=== PATIENT | female | born 1960 | race Caucasian/White ===

== ENCOUNTER 2018-02-21 14:38 | Emergency (ER) | payer MEDICAID ==
[~2018-02-21] VITALS: Ht 180.3 cm; Wt 120.0 kg
[2018-02-21 14:41] VITALS: BP 136/102
== END 2018-02-21 15:36 | disposition left against medical advice (07) ==
LOC: ER 14:38
DX: Z53.21 Procedure and treatment not carried out due to patient leaving prior to being seen by health care provider (principal)

== ENCOUNTER 2018-10-08 00:19 | Emergency (ER) | payer MEDICAID ==
[~2018-10-08] VITALS: Ht 157.5 cm; Wt 56.0 kg
[2018-10-08 00:33] VITALS: BP 126/73
== END 2018-10-08 01:18 | disposition left against medical advice (07) ==
LOC: ER 00:19
DX: R20.2 Paresthesia of skin (principal); Z53.21 Procedure and treatment not carried out due to patient leaving prior to being seen by health care provider

== ENCOUNTER 2019-03-14 09:13 | Inpatient (IN) | payer MEDICAID ==
[~2019-03-14] VITALS: Ht 180.3 cm; Wt 129.8 kg
[2019-03-14] MEDS ORDERED: ALBUTEROL (0.083%) 2.5MG/3ML NEB HHN STA (09:30)
[2019-03-14] MEDS ORDERED: METHYLPREDNISOLONE SOD SUCC 125 MG/2 ML VIAL IV STA (09:30)
[2019-03-14] MEDS ORDERED: MAGNESIUM 2 G PREMIX 50 ML IV STA (09:30)
[2019-03-14] MEDS ORDERED: IPRATROPIUM BROMIDE (0.02%) 0.5MG/2.5ML NEB HHN STA (09:30)
[2019-03-14] MEDS ORDERED: SODIUM CHLORIDE 0.9% 1,000 ML IV ONE (09:31)
[2019-03-14] MEDS ORDERED: LEVOFLOXACIN 500MG PREMIX 100 ML IV ONE (09:45)
[2019-03-14 10:00] LABS: BASOPHILS % 0.8 % (0.0-2.0); EOSINOPHILS % 4.5 % (0.0-5.0); HEMATOCRIT. 41.6 % (36.0-48.0); HEMOGLOBIN. 14.4 g/dL (12.0-16.0); LYMPHOCYTES % 24.6 % (20.0-50.0); MEAN CORPUSCULAR VOLUME 95.6 fL (81.0-99.0); MEAN PLATELET VOLUME 7.8 fl (7.4-10.4); MONOCYTES % 7.2 % (2.0-8.0); NEUTROPHILS % 62.9 % (40.0-76.0); PLATELET 237 x1000/uL (130-400); RED BLOOD CELL COUNT 4.36 mill/uL (4.2-5.4); RED CELL DISTRIBUTION WIDTH 12.6 % (11.6-14.6)
[2019-03-14 10:08] LABS: PROTHROMBIN TIME 10.3 sec (9.6-11.0)
[2019-03-14 10:09] LABS: CHLORIDE 107 mEq/L (98-107)
[2019-03-14 11:21] LABS: CLARITY URINE TURBID (CLEAR); COLOR URINE DARK YELLOW (YELLOW); KETONES URINE NEGATIVE (NEGATIVE); LEUKOCYTE ESTERASE URINE TRACE (NEGATIVE); NITRITE URINE POSITIVE (NEGATIVE); OCCULT BLOOD URINE NEGATIVE (NEGATIVE); PH URINE 5.5 (4.5-8.0); PROTEIN URINE NEGATIVE (NEGATIVE)
[2019-03-14 12:00] VITALS: BP 130/81
[2019-03-14 13:00] VITALS: BP 130/81
[2019-03-14] MEDS ORDERED: ALBU18HF2 IH (14:23)
[2019-03-14] MEDS ORDERED: DIPHENHYDRAMINE 50MG/ML VIAL IV PRN (15:45)
[2019-03-14] MEDS ORDERED: ACETAMINOPHEN 325MG TABLET PO PRN (15:45)
[2019-03-14] MEDS ORDERED: MAGNESIUM/ALUMINUM HYDROXIDE/SIMETHICONE 30ML UDC PO PRN (15:45)
[2019-03-14] MEDS ORDERED: ONDANSETRON HCL 4MG/2ML INJ IV PRN (15:45)
[2019-03-14] MEDS ORDERED: GUAIFENESIN 200MG/10ML SUGAR FREE UDC PO PRN (15:45)
[2019-03-14] MEDS ORDERED: IPRATROPIUM/ALBUTEROL 0.5-3(2.5)MG/3ML NEB HHN PRN (15:45)
[2019-03-14] MEDS ORDERED: IPRATROPIUM/ALBUTEROL 0.5-3(2.5)MG/3ML NEB HHN SCH (16:00)
[2019-03-14] MEDS ORDERED: METHYLPREDNISOLONE SOD SUCC 40 MG/ML VIAL IV SCH (16:00)
[2019-03-14] MEDS ORDERED: BUDESONIDE 0.5MG/2ML NEB HHN SCH (16:00)
[2019-03-14] MEDS ORDERED: FAMOTIDINE 20MG TABLET PO SCH (21:00)
[2019-03-14] MEDS ORDERED: SODIUM CHLORIDE 0.9% INJ 3ML FLUSH IVF SCH (22:00)
== END 2019-03-14 20:18 | disposition left against medical advice (07) | DRG 140 ==
LOC: ER 09:29 → 5EST 10:10 → EDBEDREQTM 10:34 → EDBEDREQ 10:34 → ENRESERV 10:39
PROVIDERS: ADMIT Internal Medicine; ATTEND Internal Medicine
PROC: 5A09357 Assistance with Respiratory Ventilation, Less than 24 Consecutive Hours, Continuous Positive Airway Pressure (ICD-10-PCS; principal; 2019-03-14)
DX: J44.1 Chronic obstructive pulmonary disease with (acute) exacerbation (principal); E66.01 Morbid (severe) obesity due to excess calories; Q87.40 Marfan syndrome, unspecified; F17.200 Nicotine dependence, unspecified, uncomplicated; Z53.21 Procedure and treatment not carried out due to patient leaving prior to being seen by health care provider; F41.9 Anxiety disorder, unspecified; I10 Essential (primary) hypertension; K76.9 Liver disease, unspecified; Z68.39 Body mass index [BMI] 39.0-39.9, adult
CPT/HCPCS: 36415; 71045; 81003; 83605; 83880; 84145; 84484; 93005; 94640; 94660; 96374; 99291; J1956; J2930; J3475; J7030; J7611

== ENCOUNTER 2019-04-13 00:30 | Inpatient (IN) | payer MEDICAID ==
[~2019-04-13] VITALS: Ht 180.3 cm; Wt 124.7 kg
[2019-04-13] VITALS (8 sets, daily range): BP systolic 85–119; BP diastolic 35–78
[~2019-04-13 00:30] MED LIST: ALBU18HF2 IH
[2019-04-13 01:24] LABS: HEMATOCRIT. 49.6 % (36.0-48.0); HEMOGLOBIN. 17.1 g/dL (12.0-16.0); LYMPHOCYTES % 32.9 % (20.0-50.0); MEAN CORPUSCULAR HEMOGLOBIN 32.6 pg (28.0-32.0); MEAN CORPUSCULAR VOLUME 94.6 fL (81.0-99.0); NEUTROPHILS % 55.1 % (40.0-76.0); RED BLOOD CELL COUNT 5.25 mill/uL (4.2-5.4)
[2019-04-13 01:32] LABS: BASOPHILS % 0.7 % (0.0-2.0); EOSINOPHILS % 1.8 % (0.0-5.0); MEAN PLATELET VOLUME 8.8 fl (7.4-10.4); MONOCYTES % 9.5 % (2.0-8.0); PLATELET 396 x1000/uL (130-400); RED CELL DISTRIBUTION WIDTH 12.7 % (11.6-14.6)
[2019-04-13] MEDS ORDERED: MORPHINE SULFATE 4 MG/ML CPJ (NOT FOR IM USE) IV STA (01:41)
[2019-04-13] MEDS ORDERED: ONDANSETRON HCL 4MG/2ML INJ IV STA (01:41)
[2019-04-13 01:44] LABS: CHLORIDE 95 mEq/L (98-107)
[2019-04-13] MEDS ORDERED: SODIUM CHLORIDE 0.9% 1,000 ML IV ONE ×2 (03:51→05:52)
[2019-04-13 04:21] LABS: PROTHROMBIN TIME 10.1 sec (9.6-11.0)
[2019-04-13 05:04] LABS: BASOPHILS % 0.6 % (0.0-2.0); HEMATOCRIT. 41.8 % (36.0-48.0); HEMOGLOBIN. 14.4 g/dL (12.0-16.0); LYMPHOCYTES % 26.8 % (20.0-50.0); MEAN CORPUSCULAR HEMOGLOBIN 32.4 pg (28.0-32.0); MEAN CORPUSCULAR VOLUME 94.1 fL (81.0-99.0); MEAN PLATELET VOLUME 8.2 fl (7.4-10.4); NEUTROPHILS % 57.6 % (40.0-76.0); PLATELET 296 x1000/uL (130-400); RED BLOOD CELL COUNT 4.44 mill/uL (4.2-5.4); RED CELL DISTRIBUTION WIDTH 12.2 % (11.6-14.6)
[2019-04-13] MEDS ORDERED: ASPI-1393 PO (09:25)
[2019-04-13] MEDS ORDERED: ESCI10TA PO (09:25)
[2019-04-13] MEDS ORDERED: CLONIDINE 0.1MG TABLET PO PRN (10:00)
[2019-04-13] MEDS ORDERED: ACETAMINOPHEN 325MG TABLET PO PRN (10:00)
[2019-04-13] MEDS ORDERED: GUAIFENESIN 200MG/10ML SUGAR FREE UDC PO PRN (10:00)
[2019-04-13] MEDS ORDERED: ONDANSETRON HCL 4MG/2ML INJ IV PRN (10:00)
[2019-04-13] MEDS ORDERED: DOCUSATE SODIUM 100MG CAPSULE PO PRN (10:00)
[2019-04-13] MEDS ORDERED: IPRATROPIUM/ALBUTEROL 0.5-3(2.5)MG/3ML NEB HHN PRN (10:00)
[2019-04-13] MEDS ORDERED: DIPHENHYDRAMINE 50MG/ML VIAL IV PRN (10:00)
[2019-04-13] MEDS ORDERED: MAGNESIUM/ALUMINUM HYDROXIDE/SIMETHICONE 30ML UDC PO PRN (10:00)
[2019-04-13] MEDS: SODIUM CHLORIDE 0.9% 1,000 ML IV SCH ×2 (10:22→21:54)
[2019-04-13 12:07] LABS: CREATINE KINASE MB FRACTION 1.4 ng/mL (0.5-3.6)
[2019-04-13 14:20] LABS: TOTAL IRON BINDING CAPACITY 389 ug/dL (250-450)
[2019-04-13 14:26] LABS: FOLIC ACID (FOLATE) SERUM 18.7 ng/mL (>5.38)
[2019-04-13 14:46] LABS: HEPATITIS B SURFACE ANTIGEN NEGATIVE
[2019-04-13 15:16] LABS: HEPATITIS A AB IGM NEGATIVE (NEGATIVE)
[2019-04-13] MEDS: SODIUM CHLORIDE 0.9% 250 ML IV NR ×3 (16:17→18:15)
[2019-04-13] MEDS: PANTOPRAZOLE SODIUM 40 MG/VIAL IV SCH (16:25)
[2019-04-13 20:11] LABS: CLARITY URINE CLEAR (CLEAR); COLOR URINE YELLOW (YELLOW); KETONES URINE NEGATIVE (NEGATIVE); LEUKOCYTE ESTERASE URINE NEGATIVE (NEGATIVE); NITRITE URINE NEGATIVE (NEGATIVE); OCCULT BLOOD URINE NEGATIVE (NEGATIVE); PROTEIN URINE TRACE (NEGATIVE); SPECIFIC GRAVITY URINE 1.021 (1.005-1.030); UROBILINOGEN URINE 0.2 E.U./dL (0.2-1.0)
[2019-04-14] VITALS (11 sets, daily range): BP systolic 102–135; BP diastolic 54–85
[2019-04-14] MEDS: SODIUM CHLORIDE 0.9% 1,000 ML IV SCH ×2 (06:45→16:52)
[2019-04-14 06:48] LABS: BASOPHILS % 0.6 % (0.0-2.0); EOSINOPHILS % 3.7 % (0.0-5.0); HEMATOCRIT. 38.2 % (36.0-48.0); HEMOGLOBIN. 13.1 g/dL (12.0-16.0); MEAN CORPUSCULAR HEMOGLOBIN 32.5 pg (28.0-32.0); MEAN CORPUSCULAR VOLUME 94.5 fL (81.0-99.0); MEAN PLATELET VOLUME 8.4 fl (7.4-10.4); MONOCYTES % 12.8 % (2.0-8.0); NEUTROPHILS % 55.9 % (40.0-76.0); PLATELET 208 x1000/uL (130-400); RED BLOOD CELL COUNT 4.05 mill/uL (4.2-5.4); RED CELL DISTRIBUTION WIDTH 12.2 % (11.6-14.6)
[2019-04-14 07:58] LABS: CHLORIDE 108 mEq/L (98-107)
[2019-04-14 08:06] LABS: HDL CHOLESTEROL 30 mg/dL (40-59); LDL CHOLESTEROL 72 mg/dL (5-100)
[2019-04-14 08:07] LABS: CREATINE KINASE 61 IU/L (26-192)
[2019-04-14 08:13] LABS: CREATINE KINASE MB FRACTION < 1.0 ng/mL (0.5-3.6)
[2019-04-14] MEDS: PANTOPRAZOLE SODIUM 40 MG/VIAL IV SCH (09:22)
[2019-04-14] MEDS ORDERED: DEXTROSE 50% WATER 50ML SYRINGE IV PRN (21:30)
[2019-04-15] VITALS: BP 138/79
[2019-04-15] MEDS: SODIUM CHLORIDE 0.9% 1,000 ML IV SCH (02:44)
[2019-04-15 04:00] VITALS: BP 121/85
[2019-04-15] MEDS ORDERED: BLOOD SUGAR DIAGNOSTIC STRIP TEST SCH (06:50)
[2019-04-15] MEDS ORDERED: INSULIN LISPRO 100 UNITS/ML SUBCUT SCH (07:20)
[2019-04-15] MEDS: PANTOPRAZOLE SODIUM 40 MG/VIAL IV SCH (07:56)
[2019-04-15 08:14] VITALS: BP 132/66
[2019-04-15 10:13] VITALS: BP 135/96
[2019-04-15 10:55] VITALS: BP 121/85
== END 2019-04-15 11:20 | disposition home or self-care (01) | DRG 469 ==
LOC: ER 00:51 → 3WST 03:56 → EDBEDREQ 03:58 → EDBEDREQTM 03:58 → EDBEDREQSVC 03:58 → ENRESERV 07:37
PROVIDERS: ADMIT Internal Medicine; ATTEND Internal Medicine
DX: N17.9 Acute kidney failure, unspecified (principal); I95.9 Hypotension, unspecified; E11.65 Type 2 diabetes mellitus with hyperglycemia; E87.1 Hypo-osmolality and hyponatremia; E83.39 Other disorders of phosphorus metabolism; I11.9 Hypertensive heart disease without heart failure; K76.0 Fatty (change of) liver, not elsewhere classified; A08.4 Viral intestinal infection, unspecified; J44.1 Chronic obstructive pulmonary disease with (acute) exacerbation; E66.09 Other obesity due to excess calories; D63.8 Anemia in other chronic diseases classified elsewhere; B19.20 Unspecified viral hepatitis C without hepatic coma; H54.61 Unqualified visual loss, right eye, normal vision left eye; E86.0 Dehydration; F12.90 Cannabis use, unspecified, uncomplicated; J98.11 Atelectasis; Z87.891 Personal history of nicotine dependence; F10.239 Alcohol dependence with withdrawal, unspecified; Z68.38 Body mass index [BMI] 38.0-38.9, adult; Z79.84 Long term (current) use of oral hypoglycemic drugs
CPT/HCPCS: 36415; 71045; 74176; 76700; 80061; 81003; 82550; 82553; 82607; 82746; 82962; 83036; 83540; 83550; 83735; 83880; 84100; 84443; 84450; 84460; 84484; 86705; 86709; 86803; 86850; 86900; 87340; 93005; 93970; 96361; 96374; 96375; 99291; C9113; J1200; J2270; J2405; J7030

== ENCOUNTER 2019-06-26 13:04 | Emergency (ER) | payer MEDICAID, OTHER ==
[~2019-06-26] VITALS: Ht 167.6 cm; Wt 120.0 kg
[~2019-06-26 13:04] MED LIST changes: +ASPI-1497 PO; +ESCI10TA PO
[2019-06-26 14:22] LABS: BASOPHILS % 0.7 % (0.0-2.0); HEMATOCRIT. 38.9 % (36.0-48.0); HEMOGLOBIN. 13.2 g/dL (12.0-16.0); MEAN CORPUSCULAR HEMOGLOBIN 30.5 pg (28.0-32.0); MEAN CORPUSCULAR VOLUME 89.9 fL (81.0-99.0); MEAN PLATELET VOLUME 8.3 fl (7.4-10.4); MONOCYTES % 7.1 % (2.0-8.0); NEUTROPHILS % 58.2 % (40.0-76.0); PLATELET 104 x1000/uL (130-400); RED BLOOD CELL COUNT 4.33 mill/uL (4.2-5.4); RED CELL DISTRIBUTION WIDTH 12.9 % (11.6-14.6)
[2019-06-26 14:28] LABS: CHLORIDE 109 mEq/L (98-107)
[2019-06-26 15:10] LABS: CLARITY URINE CLEAR (CLEAR); COLOR URINE YELLOW (YELLOW); KETONES URINE NEGATIVE (NEGATIVE); LEUKOCYTE ESTERASE URINE NEGATIVE (NEGATIVE); NITRITE URINE POSITIVE (NEGATIVE); OCCULT BLOOD URINE 1+ (NEGATIVE); PROTEIN URINE 1+ (NEGATIVE); SPECIFIC GRAVITY URINE 1.016 (1.005-1.030); UROBILINOGEN URINE 0.2 E.U./dL (0.2-1.0)
[2019-06-26] MEDS ORDERED: CEFTRIAXONE 1 G PREMIX 50 ML IV ONE (15:45)
[2019-06-26] MEDS ORDERED: FUROSEMIDE 40MG/4ML VIAL IVP ONE (15:45)
[2019-06-26 17:05] VITALS: BP 149/91
== END 2019-06-26 17:06 | disposition home or self-care (01) ==
LOC: ER 13:04
DX: N30.00 Acute cystitis without hematuria (principal); I11.0 Hypertensive heart disease with heart failure; I50.9 Heart failure, unspecified; J45.909 Unspecified asthma, uncomplicated; Z79.82 Long term (current) use of aspirin
CPT/HCPCS: 36415; 71045; 80053; 81003; 83880; 84484; 85025; 93005; 96365; 96375; 99284; J0696; J1940

== ENCOUNTER 2023-03-24 17:29 | Emergency (ER) | payer MEDICAID, OTHER ==
[~2023-03-24] VITALS: Ht 175.3 cm; Wt 124.0 kg
[2023-03-24 17:52] VITALS: TEMP 97.8; O2SAT 100
[2023-03-24] MEDS ORDERED: BACITRACIN ZINC OINT UDPKT TOP ONE (19:30)
[2023-03-24] MEDS ORDERED: KETOROLAC 30MG/ML VIAL IM ONE (19:30)
[2023-03-24] MEDS ORDERED: TETANUS, DIPHTHERIA, PERTUSSIS VAC/PF 0.5ML (>10YR OLD) IM ONE ×2 (20:00→21:30)
[2023-03-24] MEDS ORDERED: LIDOCAINE HCL/PF 1% 10 MG/ML 5ML VIAL INFIL ONE ×2 (20:15→20:30)
[2023-03-24 21:15] VITALS: BP 120/68; PULSE 90; RESP 16
[2023-03-24] MEDS ORDERED: KETOROLAC 60MG/2ML VIAL IM NR (21:15)
[2023-03-24] MEDS ORDERED: DICL100G58 TP (21:35)
[2023-03-24] MEDS ORDERED: METF-415 PO (21:35)
[2023-03-24] MEDS ORDERED: FLUT16SP15 NS (21:35)
[2023-03-24] MEDS ORDERED: MIRT7.5T11 PO (21:35)
[2023-03-24] MEDS ORDERED: ALBU18HF2 IH (21:35)
[2023-03-24] MEDS ORDERED: SPIR25TA6 PO (21:35)
[2023-03-24] MEDS ORDERED: CARV3.1242 PO (21:35)
[2023-03-24] MEDS ORDERED: ASPI-1406 PO (21:35)
== END 2023-03-24 23:10 | disposition home or self-care (01) ==
LOC: ER 17:29
DX: S01.111A Laceration without foreign body of right eyelid and periocular area, initial encounter (principal); J45.909 Unspecified asthma, uncomplicated; I11.0 Hypertensive heart disease with heart failure; I50.9 Heart failure, unspecified; W18.39XA Other fall on same level, initial encounter; Y93.89 Activity, other specified; Y92.89 Other specified places as the place of occurrence of the external cause; Y99.8 Other external cause status
CPT/HCPCS: 70450; 90715; 12013; 90471; 96372; 99285; J1885; J3490; Z7610 ×3